=== PATIENT | male | born 1940 | race Caucasian/White ===

== ENCOUNTER → 2016-08-31 | Day surgery (SDC) | payer MEDICARE ==
[~2016-08-31] VITALS: Ht 170.2 cm; Wt 68.7 kg
[~2016-08-31] MED LIST: AMLO10TA2 PO; ASPI325T PO; ATOR40TA16 PO; BUPIVACAINE/EPINEPHRINE 0.5% PF 30 ML VIAL ONE; DO NOT ADM ANY ANTICOAGULANT DRUGS XX PRN; ENALAPRILAT 1.25 MG/ML VIAL IV PUSH PRN; HEPARIN SODIUM - IV 10,000 UNITS/10 ML VIAL ONE; HEPARIN SODIUM - SQ 10,000 UNITS/ML VIAL ONE; INSULIN HUMAN REGULAR 1,000 UNITS/10 ML VIAL SQ PRN; IOHEXOL 300 MG/ML 50 ML BTL (for RAD DIAG) IV ONE; LABETALOL HCL 100 MG/20 ML VIAL IV PRN; LACTATED RINGER'S 1000 ML INJ 1,000 ML IV ONE; LACTATED RINGER'S 1000 ML IV SCH; LATA0.002 EACH EYE; LEVO0.5S18 EACH EYE; LISI-515 PO; METOPROLOL TARTRATE 25 MG TAB PO PRN; MULT1TAB84 PO; NITROPRUSSIDE 50 MG/D5W 250 ML IV SCH; PLAV75TA29 PO; PROPOFOL 200 MG/20 ML AMP IV ONE; PROTAMINE SULFATE 50 MG/5 ML VIAL ONE; SODIUM CHLOR 0.9% 1000 ML INJ 1,000 ML IV SCH; SODIUM CHLORID 0.9% 500 ML IV SCH; SODIUM CHLORIDE FLUSH BID IVF SCH; SODIUM CHLORIDE FLUSH PRN IVF; VIAG25TA PO; VITA1000 PO; ceFAZolin 1,000 MG/NS 100 ML IV SCH; cloNIDine HCL 0.1 MG TAB PO PRN; ePHEDrine/NS 25 MG/5 ML SYR IV ONE; oxyCODONE/ACETAMINOPHEN 5 MG/325 MG TAB PO PRN
[2016-08-31 08:01] LABS: AUTOMATED NEUTROPHIL # 4.1 TH/MM3 (1.8-7.7); BASOPHIL # 0.1 TH/MM3 (0-0.2); BASOPHIL % 1.2 % (0.0-2.0); EOSINOPHIL # 1.9 TH/MM3 (0-0.4); EOSINOPHIL % 20.7 % (0.0-4.0); HEMATOCRIT 40.6 % (39.0-51.0); HEMO FLAGS DIFF FINAL; LYMPH % 23.7 % (9.0-44.0); LYMPHOCYTE # 2.1 TH/MM3 (1.0-4.8); MEAN CELL VOLUME 97.4 FL (80.0-100.0); MEAN CORPUSCULAR HEMOGLOBIN 32.3 PG (27.0-34.0); MEAN CORPUSCULAR HGB CONC 33.2 % (32.0-36.0); MONO % 8.4 % (0.0-8.0); PLATELET COUNT 161 TH/MM3 (150-450); RED BLOOD COUNT 4.17 MIL/MM3 (4.50-5.90); RED CELL DISTRIBUTION WIDTH 14.8 % (11.6-17.2); WHITE BLOOD COUNT 8.9 TH/MM3 (4.0-11.0)
[2016-08-31 08:08] LABS: APTT (PATIENT) 23.6 SEC (24.3-30.1); PROTHROMBIN TIME - PATIENT 10.8 SEC (9.8-11.6)
[2016-08-31 08:17] LABS: BICARBONATE 23.6 MEQ/L (21.0-32.0)
[2016-08-31 08:18] LABS: POTASSIUM 5.1 MEQ/L (3.5-5.1)
[2016-08-31 08:33] VITALS: BP 157/67; PULSE 54; RESP 20; TEMP 98.4; O2SAT 100
[2016-08-31 15:05] VITALS: BP 127/57; PULSE 55; RESP 18; TEMP 97.6; O2SAT 99
--- NOTE | 2016-09-01 07:51 | MP ---
cc: JOHAN FALCON M.D., JAMES E. 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 Stage III chronic kidney disease. POSTOPERATIVE DIAGNOSIS Duplex scan suggested right iliac inflow occlusive disease - status post right common/external iliac stents and subsequent right and left femoral-femoral bypass. OPERATIVE PROCEDURE Selective aortofemoral CO2 angiogram. SURGEON Johan Falcon MD LOCOMOTIVE INSPECTOR NICOLE Yeboah ANESTHESIA Local MAC DESCRIPTION OF PROCEDURE With the patient in the supine position and under IV sedation, the lower abdomen and both groins were prepped with Betadine and draped in a sterile fashion. One gram of Ancef was administered intravenously and following a protocol time-out, the skin and subcutaneous tissue overlying the proposed right common femoral access site was preemptively infiltrated with 0.5% Marcaine with epinephrine. Utilizing ultrasound guidance, an 18 gauge needle was inserted into the proximal common femoral lumen proximal to the cabazon common femoral to the PTFE graft anastomosis. A J-wire was advanced under fluoroscopic guidance into the iliac artery. A 5-[place] Citizen hemostatic sheath was deployed over the J-wire. An Advantage guidewire/Omni catheter combination was navigated into the subrenal aorta. Utilizing CO2 as contrast in conjunction with digital C-arm fluoroscopic imaging, aortofemoral arteriogram was completed. This revealed widely patent right common and external iliac stents. Despite preoperative duplex imaging suggesting significantly accelerated peak systolic velocities within the right iliofemoral area, no hemodynamic significant appearing stenosis was apparent. In addition, the right cabazon common femoral to PTFE graft anastomosis was widely patent. The PTFE femoral-femoral graft was widely patent throughout as well as the left femoral anastomosis and previously created timmy bifurcation within the left common femoral artery. Both profunda and superficial femoral arteries were patent. The 5-[place] Citizen sheath was removed. Hemostasis was achieved with compression. There were no operative complications. The patient returned to the recovery room in stable condition having tolerated the procedure well. MD TRAY Stoner/CHANCE /7:08 PM /7:39 AM
--- NOTE | 2016-09-06 14:53 | EKG ---
Date Performed: 08/31/2016 Time Performed: 07:49:21 PTAGE: 76 years EKG: SINUS BRADYCARDIA MINIMAL ST DEPRESSION BORDERLINE ECG Compared to prior tracing no signifi cant change PREVIOUS TRACING : 04/22/2009 10.42 DOCTOR: Mandeep Lal Interpretating Date/Time 09/06/2016 14:51:16
== END | disposition home or self-care (01) ==
LOC: HCVO 07:15
PROVIDERS: ATTEND Surgery Vascular Surgery
DX: I70.211 Atherosclerosis of native arteries of extremities with intermittent claudication, right leg (principal); I10 Essential (primary) hypertension; J44.9 Chronic obstructive pulmonary disease, unspecified
CPT/HCPCS: 01916; 36247; 75716; 80048; 85025; 85610; 85730; 86850; 86900; 86901; 93005; C1769; J0690; J1644; J2720; J3010; J7120; Q9967

== ENCOUNTER 2017-01-11 11:10 | Day surgery (SDC) | payer MEDICARE ==
[~2017-01-11] VITALS: Ht 168.9 cm; Wt 74.0 kg
[~2017-01-11 11:10] MED LIST changes: -BUPIVACAINE/EPINEPHRINE 0.5% PF 30 ML VIAL ONE; -DO NOT ADM ANY ANTICOAGULANT DRUGS XX PRN; -ENALAPRILAT 1.25 MG/ML VIAL IV PUSH PRN; -HEPARIN SODIUM - IV 10,000 UNITS/10 ML VIAL ONE; -HEPARIN SODIUM - SQ 10,000 UNITS/ML VIAL ONE; -INSULIN HUMAN REGULAR 1,000 UNITS/10 ML VIAL SQ PRN; -IOHEXOL 300 MG/ML 50 ML BTL (for RAD DIAG) IV ONE; -LABETALOL HCL 100 MG/20 ML VIAL IV PRN; -LACTATED RINGER'S 1000 ML INJ 1,000 ML IV ONE; -LACTATED RINGER'S 1000 ML IV SCH; -METOPROLOL TARTRATE 25 MG TAB PO PRN; -NITROPRUSSIDE 50 MG/D5W 250 ML IV SCH; -PROPOFOL 200 MG/20 ML AMP IV ONE; -PROTAMINE SULFATE 50 MG/5 ML VIAL ONE; -SODIUM CHLOR 0.9% 1000 ML INJ 1,000 ML IV SCH; -SODIUM CHLORID 0.9% 500 ML IV SCH; -SODIUM CHLORIDE FLUSH BID IVF SCH; -SODIUM CHLORIDE FLUSH PRN IVF; -ceFAZolin 1,000 MG/NS 100 ML IV SCH; -cloNIDine HCL 0.1 MG TAB PO PRN; -ePHEDrine/NS 25 MG/5 ML SYR IV ONE; -oxyCODONE/ACETAMINOPHEN 5 MG/325 MG TAB PO PRN
[2017-01-11] MEDS ORDERED: PROPOFOL 200 MG/20 ML AMP IV ONE (11:23)
[2017-01-11] MEDS ORDERED: PROTAMINE SULFATE 50 MG/5 ML VIAL IV ONE (11:23)
[2017-01-11] MEDS ORDERED: PHENYLEPH/NS 1000 MCG/10 ML SYR IV ONE (11:23)
[2017-01-11] MEDS ORDERED: HEPARIN - 10,000 UNITS/ML IV ADDITIVE IV ONE (11:23)
[2017-01-11] MEDS ORDERED: LACTATED RINGER'S 1000 ML INJ 1,000 ML IV ONE (11:23)
[2017-01-11] MEDS ORDERED: ePHEDrine/NS 25 MG/5 ML SYR IV ONE (11:23)
[2017-01-11] MEDS ORDERED: IODIXANOL 320 MG/ML 50 ML VIAL (for Cath Lab) ONE (11:37)
[2017-01-11] MEDS ORDERED: ceFAZolin INJ 1,000 MG VIAL ONE (11:46)
[2017-01-11] MEDS ORDERED: SODIUM CHLORIDE 0.9% INJ 100 ML ONE (11:47)
[2017-01-11 12:00] VITALS: BP 124/70; PULSE 60; RESP 18; TEMP 97.3; O2SAT 99
[2017-01-11] MEDS ORDERED: MULTTAB67 PO (12:00)
[2017-01-11 12:15] LABS: AUTOMATED NEUTROPHIL # 4.2 TH/MM3 (1.8-7.7); BASOPHIL # 0.1 TH/MM3 (0-0.2); BASOPHIL % 1.1 % (0.0-2.0); EOSINOPHIL # 2.2 TH/MM3 (0-0.4); EOSINOPHIL % 25.4 % (0.0-4.0); HEMATOCRIT 43.8 % (39.0-51.0); HEMO FLAGS DIFF FINAL; LYMPH % 16.2 % (9.0-44.0); LYMPHOCYTE # 1.4 TH/MM3 (1.0-4.8); MEAN CELL VOLUME 98.1 FL (80.0-100.0); MEAN CORPUSCULAR HEMOGLOBIN 31.7 PG (27.0-34.0); MEAN CORPUSCULAR HGB CONC 32.4 % (32.0-36.0); MONO % 7.9 % (0.0-8.0); NEUT % 49.4 % (16.0-70.0); PLATELET COUNT 157 TH/MM3 (150-450); RED BLOOD COUNT 4.47 MIL/MM3 (4.50-5.90); RED CELL DISTRIBUTION WIDTH 14.3 % (11.6-17.2); WHITE BLOOD COUNT 8.6 TH/MM3 (4.0-11.0)
[2017-01-11 12:26] LABS: APTT (PATIENT) 26.8 SEC (24.3-30.1); PROTHROMBIN TIME - PATIENT 10.9 SEC (9.8-11.6)
[2017-01-11 12:38] LABS: BICARBONATE 23.1 MEQ/L (21.0-32.0); POTASSIUM 4.7 MEQ/L (3.5-5.1)
[2017-01-11] MEDS ORDERED: LACTATED RINGER'S 1000 ML IV PRN (13:30)
[2017-01-11] MEDS ORDERED: SODIUM CHLORID 0.9% 500 ML IV PRN (13:30)
[2017-01-11] MEDS ORDERED: ceFAZolin 1,000 MG/NS 100 ML IV SCH ×2 (13:30)
[2017-01-11] MEDS ORDERED: POVIDONE IODINE 5% (ANTISEPSIS KIT) 4 APPLICATIONS EACH NARE PRN (13:30)
[2017-01-11] MEDS ORDERED: INSULIN HUMAN REGULAR 1,000 UNITS/10 ML VIAL SQ PRN (13:30)
[2017-01-11] MEDS ORDERED: METOPROLOL TARTRATE 25 MG TAB PO PRN (13:30)
[2017-01-11] MEDS ORDERED: CHLORHEXIDINE GLUCONATE 2 % 1 PACK (2 CLOTHS) TOPICAL PRN (13:30)
[2017-01-11] MEDS ORDERED: DEXAMETHASONE SOD PHOS 4 MG/ML VIAL ONE (16:04)
[2017-01-11] MEDS ORDERED: FAMOTIDINE 20 MG/2 ML VIAL ONE (16:04)
[2017-01-11] MEDS ORDERED: BUPIVACAINE/EPINEPHRINE 0.5% PF 10 ML VIAL INFIL ONE (17:10)
[2017-01-11] MEDS ORDERED: DO NOT ADM ANY ANTICOAGULANT DRUGS PRN (18:22)
[2017-01-11] MEDS ORDERED: fentaNYL CITRATE 250 MCG/5 ML AMP ONE (18:39)
[2017-01-11] MEDS ORDERED: MIDAZOLAM HCL 2 MG/2 ML VIAL ONE (18:39)
[2017-01-11] MEDS ORDERED: LACTATED RINGER'S 500 ML INJ IV SCH (20:15)
[2017-01-11] MEDS ORDERED: MAGNESIUM SULFATE 1 GM/100 ML IV PRN (20:15)
[2017-01-11] MEDS ORDERED: POTASSIUM PHOSPHATE 21 MMOL/NS 250 ML IV PRN ×2 (20:15)
[2017-01-11] MEDS ORDERED: ONDANSETRON HCL 4 MG/2 ML VIAL IV PUSH PRN (20:15)
[2017-01-11] MEDS ORDERED: POTASSIUM CHLOR 20 MEQ 100 ML x 2 BAGS IV PRN (20:15)
[2017-01-11] MEDS ORDERED: POTASSIUM CHLOR 20 MEQ/100 ML x 1 BAG IV PRN (20:15)
[2017-01-11] MEDS ORDERED: ACETAMINOPHEN/HYDROcodone 325 MG/5 MG TAB PO PRN (20:15)
[2017-01-11] MEDS ORDERED: SODIUM CHLORIDE 0.9% FLUSH 10 ML FLUSH IV FLUSH PRN (20:15)
[2017-01-11] MEDS ORDERED: LATANOPROST 0.005% OPHT SOLN 2.5 ML BTL EACH EYE SCH (21:00)
[2017-01-11] MEDS: SODIUM CHLORIDE 0.9% FLUSH 10 ML FLUSH IV FLUSH SCH (21:00)
[2017-01-11] MEDS ORDERED: ATORVASTATIN 40 MG TAB PO SCH (21:00)
[2017-01-12] VITALS (7 sets, daily range): BP systolic 108–144; BP diastolic 63–73; PULSE 63–74; RESP 16; TEMP 97.5–98.5; O2SAT 95–99
[2017-01-12] MEDS ORDERED: LEVOBUNOLOL HCL 0.5% OPHT SOLN 5 ML BTL EACH EYE SCH (09:00)
[2017-01-12] MEDS: ASPIRIN 325 MG TAB PO SCH ×2 (09:00→09:44)
[2017-01-12] MEDS: SODIUM CHLORIDE 0.9% FLUSH 10 ML FLUSH IV FLUSH SCH (09:00)
[2017-01-12] MEDS: CLOPIDOGREL 75 MG TAB PO SCH ×2 (09:00→09:45)
[2017-01-12] MEDS ORDERED: LISINOPRIL 20 MG TAB PO SCH (09:00)
--- NOTE | 2017-01-12 10:00 | MP ---
cc: JOHAN FALCON DATE OF SURGERY: 01/11/2017 PREOPERATIVE DIAGNOSIS Recurrent right iliac stenosis status post common and external iliac stent placements, right to left femoral-femoral bypass. POSTOPERATIVE DIAGNOSIS Recurrent right iliac stenosis status post common and external iliac stent placements, right to left femoral-femoral bypass. OPERATIVE PROCEDURE Aortofemoral arteriogram, CO2. Right common/external iliac percutaneous balloon angioplasty of in-stent restenosis. SURGEON Johan Falcon MD LANDING SIGNAL OFFICER NICOLE Yeboah ANESTHESIA Local MAC. DESCRIPTION OF OPERATIVE PROCEDURE With the patient in the supine position and under IV sedation, the abdomen, both groins and thighs were prepped with Betadine and draped in a sterile fashion. One gram of Ancef was administered intravenously and following a protocol time-out, the skin and subcutaneous tissue surrounding the proposed access site preemptively infiltrated with 40% Marcaine with epinephrine. Utilizing ultrasound guidance, the PTFE graft of the right to left femoral-femoral bypass was accessed along the left calf and a J-wire navigated under fluoroscopic guidance into the right common femoral artery. A 4-Wallis[place] hemostatic sheath was deployed over the J-wire. An advantage guidewire On-Q-ity catheter was negotiated under fluoroscopic guidance into the right iliac and advanced into the distal aorta. Utilizing CO2 as contrast, aortofemoral arteriogram was completed. Findings as follows: The distal aorta was eccentrically calcified. The left common iliac artery flush occluded at its origin. The previously placed right common and external iliac stents exhibited two focal areas of concentric constriction, one within the proximal common femoral stent and the other in the mid right external iliac stent. Both appeared hemodynamically significant. The right common femoral to PTFE and left common femoral to PTFE graft anastomoses were widely patent. Flow throughout the PTFE graft lumen was unrestricted. The left femoral endarterectomy, patch angioplasty and timmy-bifurcation was widely patent. The flow into both proximal superficial femoral arteries was unrestricted. The left SFA was diffusely diseased throughout and occluded at the adductor level. The popliteal was completely occluded above and below the knee. Lindsey-geniculate collaterals reconstituted the distal popliteal and uninterrupted three-vessel runoff to the left foot was maintained. On the right side the SFA was patent throughout but a focal near complete occlusion was present at the adductor level. The popliteal and trifurcation were patent. The 4-Wallisian hemostatic sheath was exchanged for a 6-Wallisian sheath. A 9 x 80 mm balloon was introduced and the right common, external iliac in-stent stenoses balloon angioplasty to 8 atmospheres, two separate inflations of 2 minutes each. Prior to the balloon angioplasty the patient was systemically heparinized with 5000 units. Completion angiogram revealed no residual stenosis. It should also be noted that prior to the balloon angioplasty, transluminal pressure measurements documented a 25 mm pressure diminishment across the two areas of in-stent restenosis. At the completion of the procedure there was no pressure gradient remaining. The 5-Wallisian hemostatic sheath was secured with a skin suture of 4-0 Nylon. Heparin was partially reversed with 10 mg of protamine. The patient returned to Post Anesthesia in stable condition having tolerated the procedure well. MD TRAY Stoner/TLL /8:14 AM /9:35 AM
[2017-01-12] MEDS ORDERED: DO NOT ADM ANY ANTICOAGULANT DRUGS PRN (18:22)
== END 2017-01-12 10:54 | disposition home or self-care (01) ==
LOC: HCVO 11:10 → HCIS 01-12 00:01 → HSDC 01-12 10:54
PROVIDERS: ATTEND Surgery Vascular Surgery
DX: T82.858A Stenosis of other vascular prosthetic devices, implants and grafts, initial encounter (principal); I73.9 Peripheral vascular disease, unspecified; I25.10 Atherosclerotic heart disease of native coronary artery without angina pectoris; I10 Essential (primary) hypertension; Z01.818 Encounter for other preprocedural examination
CPT/HCPCS: 00880; 37220; 75710; 80048; 85025; 85610; 85730; C1725; C1769; J0690; J1100; J1644; J2250; J2370; J2720; J3010; J7120; Q9967

== ENCOUNTER 2017-05-29 20:52 | Emergency (ER) | payer OTHER, MEDICARE ==
[~2017-05-29] VITALS: Ht 167.6 cm; Wt 70.5 kg
[~2017-05-29 20:52] MED LIST changes: +ASPI-183 PO; -ASPI325T PO; -MULT1TAB84 PO; +MULTTAB67 PO
[2017-05-29 20:59] VITALS: BP 175/92; PULSE 65; RESP 20; O2SAT 98
[2017-05-29] MEDS ORDERED: SODIUM CHLOR 0.9% 1000 ML INJ 1,000 ML IV SCH (21:15)
[2017-05-29] MEDS ORDERED: ceFAZolin 2 GM PREMIX 50 ML IV SCH (21:15)
[2017-05-29] MEDS ORDERED: DIPHTH/TETANUS/ACEL PERTUSSIS (BOOSTER) 0.5 ML VIAL/PFS IM ONE (21:15)
[2017-05-29] MEDS ORDERED: ONDANSETRON HCL 4 MG/2 ML VIAL IV ONE (21:15)
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
[2017-05-29 22:06] LABS: AUTOMATED NEUTROPHIL # 3.6 TH/MM3 (1.8-7.7); BASOPHIL # 0.1 TH/MM3 (0-0.2); BASOPHIL % 1.4 % (0.0-2.0); EOSINOPHIL # 1.6 TH/MM3 (0-0.4); EOSINOPHIL % 21.1 % (0.0-4.0); HEMATOCRIT 40.3 % (39.0-51.0); HEMO FLAGS DIFF FINAL; LYMPH % 19.9 % (9.0-44.0); LYMPHOCYTE # 1.5 TH/MM3 (1.0-4.8); MEAN CELL VOLUME 98.3 FL (80.0-100.0); MEAN CORPUSCULAR HEMOGLOBIN 33.8 PG (27.0-34.0); MEAN CORPUSCULAR HGB CONC 34.4 % (32.0-36.0); MONO % 10.7 % (0.0-8.0); NEUT % 46.9 % (16.0-70.0); PLATELET COUNT 185 TH/MM3 (150-450); RED CELL DISTRIBUTION WIDTH 14.4 % (11.6-17.2); WHITE BLOOD COUNT 7.7 TH/MM3 (4.0-11.0)
[2017-05-29 22:16] VITALS: PULSE 60; RESP 18; O2SAT 99
[2017-05-29 22:25] LABS: ALT (GPT) 36 U/L (12-78); ANION GAP 7 MEQ/L (5-15); AST (GOT) 28 U/L (15-37); BICARBONATE 24.3 MEQ/L (21.0-32.0); BLOOD UREA NITROGEN 31 MG/DL (7-18); CHLORIDE 108 MEQ/L (98-107); GLOMERULAR FILTRATION RATE 38 ML/MIN (>89); SODIUM (NA) 139 MEQ/L (136-145)
[2017-05-29 22:26] LABS: ALKALINE PHOSPHATASE 96 U/L (45-117); TOTAL BILIRUBIN ADULT 0.4 MG/DL (0.2-1.0)
[2017-05-29 22:27] LABS: POTASSIUM 4.9 MEQ/L (3.5-5.1)
[2017-05-29 22:29] LABS: APTT (PATIENT) 26.2 SEC (24.3-30.1); PROTHROMBIN TIME - PATIENT 10.7 SEC (9.8-11.6)
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
[2017-05-29] MEDS ORDERED: CYCL5TAB PO (23:21)
--- NOTE | 2017-05-30 08:33 | EKG ---
Date Performed: 05/29/2017 Time Performed: 22:09:17 PTAGE: 77 years EKG: Sinus rhythm RIGHT AXIS DEVIATION NONSPECIFIC LATERAL ST ABNORMALITY POSSIBLE RIGHT ARM, LEFT ARM LEAD REVERSAL A BNORMAL ECG PREVIOUS TRACING : 08/31/2016 07.49 Compared to previous tracing, arm lead reversal is now pres ent. DOCTOR: Anton Barber Interpretating Date/Time 05/30/2017 08:32:17
== END 2017-05-29 23:35 | disposition home or self-care (01) ==
LOC: NEPC 20:52
DX: M54.2 Cervicalgia (principal); S61.511A Laceration without foreign body of right wrist, initial encounter; S81.012A Laceration without foreign body, left knee, initial encounter; R11.0 Nausea; R94.31 Abnormal electrocardiogram [ECG] [EKG]; I10 Essential (primary) hypertension; E78.00 Pure hypercholesterolemia, unspecified; V43.52XA Car driver injured in collision with other type car in traffic accident, initial encounter; Y92.488 Other paved roadways as the place of occurrence of the external cause; Z87.891 Personal history of nicotine dependence; Z23 Encounter for immunization; Z79.02 Long term (current) use of antithrombotics/antiplatelets; Z79.899 Other long term (current) drug therapy
CPT/HCPCS: 70450; 71010; 72125; 80053; 85025; 85610; 85730; 90471; 90715; 93005; 96374; 96375; 99285; J0690; J2405; J7030